=== PATIENT | female | born 1975 | race Caucasian/White ===

== ENCOUNTER 2023-08-16 04:21 | Day surgery (SDC) | payer OTHER ==
[2023-08-16 08:30] VITALS: BMI 25.2
[2023-08-16] MEDS ORDERED: ONDANSETRON 4 MG/2 ML VIAL IVPUSH PRN ×2 (09:40→12:33)
[2023-08-16] MEDS ORDERED: oxyCODONE HCL 5 MG TABLET PO PRN ×2 (09:40→12:33)
[2023-08-16] MEDS ORDERED: LACTATED RINGERS SOLUTION 1,000 ML IV SCH (09:45)
[2023-08-16] MEDS ORDERED: BUPIVACAINE HCL/PF 0.25% (2.5MG/ML) 10 ML VIAL ONE (10:25)
[2023-08-16] MEDS ORDERED: BUPIVACAINE HCL/PF 0.5% (5MG/ML) 10 ML VIAL ONE (10:25)
[2023-08-16] MEDS ORDERED: LIDOCAINE HCL 1%, 10 MG/ML (20ML VIAL) ONE (10:25)
[2023-08-16] MEDS ORDERED: LIDOCAINE HCL/PF 2% SDV 5ML VIAL ONE (11:31)
[2023-08-16] MEDS ORDERED: KETOROLAC TROMETHAMINE 30 MG/1 ML VIAL ONE (11:31)
[2023-08-16] MEDS ORDERED: ONDANSETRON 4 MG/2 ML VIAL ONE (11:31)
[2023-08-16] MEDS ORDERED: METOCLOPRAMIDE HCL INJECTION 10 MG/2 ML VIAL ONE (11:31)
[2023-08-16] MEDS ORDERED: DEXAMETHASONE SOD PHOSPHATE 4 MG/1 ML VIAL ONE (11:31)
[2023-08-16] MEDS ORDERED: MIDAZOLAM HCL 2 MG/2 ML SINGLE DOSE VIAL ONE (11:32)
[2023-08-16] MEDS: ceFAZolin SODIUM 1 GM VIAL IVPB ONE (11:55)
[2023-08-16] MEDS ORDERED: SUGAMMADEX SODIUM 200 MG/2 ML VIAL ONE (12:16)
[2023-08-16] MEDS ORDERED: HYDROmorphone HCl 2 MG/ML VIAL ONE (12:21)
[2023-08-16] MEDS ORDERED: IBUPROFEN 800 MG/8 ML IJ IVPB PRN (12:33)
[2023-08-16] MEDS ORDERED: IBUPROFEN 600 MG TABLET (FP) PO PRN (12:33)
[2023-08-16] MEDS ORDERED: ACETAMINOPHEN INJECTION 100 ML IVPB ONE (12:43)
[2023-08-16] MEDS ORDERED: ELECTROLYTE-148 SOLN 1,000 ML IV SCH (12:45)
[2023-08-16 14:11] VITALS: RESP 18; TEMP 97.7
[2023-08-16 15:27] VITALS: BP 106/62; PULSE 64
== END 2023-08-16 15:26 | disposition home or self-care (01) ==
LOC: JASU-SURG 04:21
PROVIDERS: ATTEND Obstetrics & Gynecology
PROC: 0UT74ZZ Resection of Bilateral Fallopian Tubes, Percutaneous Endoscopic Approach (ICD-10-PCS; principal; 2023-08-16 10:00)
DX: Z30.2 Encounter for sterilization (principal)
CPT/HCPCS: 81025; 82962; 88302-TC; 94760; J0131

== ENCOUNTER 2024-01-30 07:46 | Day surgery (SDC) | payer OTHER ==
[2024-01-18 14:37] VITALS: BMI 20.9
[2024-01-30 11:16] VITALS: TEMP 97.6
[2024-01-30 11:38] VITALS: RESP 16
[2024-01-30 11:43] VITALS: BP 107/63; PULSE 58
== END 2024-01-30 12:11 | disposition home or self-care (01) ==
LOC: JASU-ENDO 07:46
PROVIDERS: ATTEND Internal Medicine Gastroenterology
PROC: 0DB78ZX Excision of Stomach, Pylorus, Via Natural or Artificial Opening Endoscopic, Diagnostic (ICD-10-PCS; 2024-01-30)
PROC: 0DB68ZX Excision of Stomach, Via Natural or Artificial Opening Endoscopic, Diagnostic (ICD-10-PCS; 2024-01-30)
PROC: 0DB98ZX Excision of Duodenum, Via Natural or Artificial Opening Endoscopic, Diagnostic (ICD-10-PCS; principal; 2024-01-30 11:00)
DX: Z12.11 Encounter for screening for malignant neoplasm of colon (principal); K29.40 Chronic atrophic gastritis without bleeding
CPT/HCPCS: 43239; G0121; 82962; 88305-TC; 88342-TC

== ENCOUNTER → 2024-12-05 | Day surgery (SDC) | payer OTHER | END | disposition home or self-care (01) | LOC: JRADUS-SUR 07:53 | PROVIDERS: ATTEND Obstetrics & Gynecology | PROC: 0H9V3ZX Drainage of Bilateral Breast, Percutaneous Approach, Diagnostic (ICD-10-PCS; principal; 2024-12-05) | DX: N60.21 Fibroadenosis of right breast (principal); N60.22 Fibroadenosis of left breast | CPT/HCPCS: 19083; 19084; 76942-TC; 77066-TC; 87899; 88305-TC; 88341-TC; 88342-TC; A4648 ==